=== PATIENT | female | born 1935 | race Caucasian/White ===

== ENCOUNTER → 2017-11-17 | Outpatient (CLI) | payer OTHER ==
[2017-11-17] MEDS: REGADENOSON 0.4 MG/5 ML DISP.SYRIN. IV (10:46)
== END | disposition home or self-care (01) ==
LOC: ECHO 07:46
DX: R07.9 Chest pain, unspecified (principal); I10 Essential (primary) hypertension; E11.9 Type 2 diabetes mellitus without complications
CPT/HCPCS: 78452; 93017; 93306; 96374; 96375; 96376; A9500; J2785

== ENCOUNTER 2018-10-28 16:14 | Emergency (ER) | payer OTHER ==
[~2018-10-28] VITALS: Ht 162.6 cm; Wt 67.1 kg
[~2018-10-28 16:14] MED LIST: ALEN70TA6 PO; BRIM5DRO2 OP; LATA2.5D3 OP; LISI-338 PO; METF500T16 PO
[2018-10-28 16:32] VITALS: BP 195/100
[2018-10-28] MEDS ORDERED: OXYMETAZOLINE 0.05% NASAL SPRAY 30ML BOTTLE. NS ONE (16:45)
--- NOTE | 2018-10-28 16:59 | PHYS DOC ---
Past Medical History Past Medical History: Arthritis, Diabetes-Type II, Glaucoma, Hypertension Additional Past Medical Histor: HIGH CHOLESTEROL Past Surgical History: Appendectomy, Other Additional Past Surgical Histo: GALLBLADDER REMOVAL, BILATERAL ARM SURGERY Additional Information: Nonsmoker Alcohol Use: None Drug Use: None Adult General Chief Complaint Chief Complaint: NOSEBLEED HPI HPI Patient is a 83 year old female who presents with nosebleed. This started approximately 36 hours ago. Has been intermittent. No trauma. No upper respiratory infection symptoms mild in intensity with an occasional drip, no "gush" of blood. It stops with direct pressure. Nothing seems to make it worse. No fever. No difficulty breathing. She denies being on any blood thinners other than a baby aspirin at bedtime.[] Review of Systems Review of Systems Constitutional: Denies fever or chills [] Eyes: Denies change in visual acuity, redness, or eye pain [] HENT: Denies nasal congestion other than the nosebleed or sore throat [] Respiratory: Denies cough or shortness of breath [] Cardiovascular: No chest pain or palpitations[] GI: Denies abdominal pain, nausea, vomiting, bloody stools or diarrhea [] : Denies dysuria or hematuria [] Musculoskeletal: Denies back pain or joint pain [] Integument: Denies rash or skin lesions [] Neurologic: Denies headache, focal weakness or sensory changes [] Endocrine: Denies polyuria or polydipsia [] All other systems were reviewed and found to be within normal limits, except as documented in this note. Allergies Allergies Allergies Coded Allergies Type Severity Reaction Last Updated Verified No Known Drug Allergies 08/12/13 No Physical Exam Physical Exam Constitutional: Well developed, well nourished, no acute distress, non-toxic appearance. [] HENT: Normocephalic, atraumatic, bilateral external ears normal, oropharynx moist, no oral exudates, nose with blood in bilateral nares, left greater than right, no active bleeding site identified. No septal hematoma.. [] Eyes: PERRLA, EOMI, conjunctiva normal, no discharge. [] Neck: Normal range of motion, no tenderness, supple, no stridor. [] Cardiovascular:Heart rate regular rhythm, no murmur [] Lungs & Thorax: Bilateral breath sounds clear to auscultation [] Abdomen: Not examined[] Skin: Warm, dry, no erythema, no rash. No petechiae [] Back: No tenderness, no CVA tenderness. [] Extremities: No tenderness, no cyanosis, no clubbing, ROM intact, no edema. [] Neurologic: Alert and oriented X 3, normal motor function, normal sensory function, no focal deficits noted. [] Psychologic: Affect normal, judgement normal, mood normal. [] EKG EKG [] Radiology/Procedures Radiology/Procedures [] Course & Med Decision Making Course & Med Decision Making Pertinent Labs and Imaging studies reviewed. (See chart for details) ED course: Patient arrived, was placed in bed, and tolerated exam well. Patient had 4 sprays of oxymetazoline instilled into each nostril and pressure held for 10 minutes with a nose clamp. This improved the bleeding. She was instructed on how to do this at home and when to return. Patient and family voiced understanding. All questions were answered.[] Dragon Disclaimer Dragon Disclaimer This electronic medical record was generated, in whole or in part, using a voice recognition dictation system. Departure Departure Impression: Primary Impression: Anterior epistaxis Disposition: HOME, SELF-CARE Condition: IMPROVED Referrals: LOUISA WHITT MD (PCP) Follow-up in 2 days Patient Instructions: Nosebleed Additional Instructions: Follow-up with your regular doctor in 2 days. You may slather Vaseline on the inside of your nose to help function as a moisture barrier to allow you to heal. Return to the ER if worsening bleeding or any other concerns. Use the Afrin as follows: 1. Gently blow the snot and clot out 2. Sprain 4 squirts of Afrin in each nostril while inhaling through the nose 3. Hold pressure for 10 minutes 4. If there is continued bleeding after 10 minutes, repeat steps 1 through 3 above 5. If there is continued bleeding after 2 attempts continue to hold pressure and return to the emergency department HEBER WORLEY DO Oct 28, 2018 16:59
== END 2018-10-28 17:23 | disposition home or self-care (01) ==
LOC: ER 16:14
DX: R04.0 Epistaxis (principal); E78.00 Pure hypercholesterolemia, unspecified; E11.9 Type 2 diabetes mellitus without complications; I10 Essential (primary) hypertension
CPT/HCPCS: 99282

== ENCOUNTER → 2018-12-13 | Outpatient (CLI) | payer OTHER ==
--- NOTE | 2018-12-13 08:57 | RAD ---
MR#: [id number] Date of Study: 12/13/2018 Ordering Physician: ALCON YOUNG, Referring Physician: ALCON YOUNG, Tech: Eze Estevez MBA, RDMS, RVT, RDCS, RTR APPROVED REPORT Patient Location : OUT-PATIENT Indications LEG CRAMPS/WORSE ON LEFT Greater Saphenous Veins (GSV) Significant venous relux noted in the LEFT GSV at the following levels : Superficial Femoral Junction , Proximal Thigh, Mid Thigh, Distal Thigh, Proximal Calf, Mid Calf, Distal Calf Perforators Thigh Perforators Calf Perforators Left: cm up from medial heel 21cm back from the anterior border of tibia 3 diameter 2mm. Findings Grayscale images of the left greater saphenous vein do not reveal any obvious evidence of thrombus. T he left great saphenous vein measures approximate 6.9 mm in greatest diameter and has a maximum reflu x time of 4.1 seconds. There are mid leg perforators in the left side at approximately 21 cm up from the ankle and 3 cm back from the knee with a diameter of approximately 2.2 mm in these perforators de monstrated reflux. The right great saphenous vein does not have any obvious evidence of thrombus and measures approximat e 5.8 mm. The right great saphenous vein does not reflux. The bilateral lesser saphenous veins do not demonstrate any reflux. Critical Notification Critical Value: No <Conclusion> 1. Positive for reflux in the left greater saphenous vein with a thigh sales and marketing agent as noted above. 2. Negative for reflux in the right great saphenous vein and bilateral lesser saphenous veins. Signed by : Mykel Rm, Electronically Approved : 12/13/2018 08:57:01
== END | disposition home or self-care (01) ==
LOC: US 08:03
PROVIDERS: ATTEND Internal Medicine Cardiovascular Disease
DX: I87.2 Venous insufficiency (chronic) (peripheral) (principal)
CPT/HCPCS: 93970

== ENCOUNTER → 2020-09-03 | Outpatient (CLI) | payer MEDICARE ==
[~2020-09-03] MED LIST changes: -ALEN70TA6 PO; +ALEN70TA71 PO
--- NOTE | 2020-09-03 11:15 | KCIC ---
EXAM: Thoracic spine, 3 views. HISTORY: Acute pain. COMPARISON: None. FINDINGS: 3 views of the thoracic spine are obtained. There is mild S-shaped thoracolumbar scoliosis. There is a moderate wedge compression fracture of L1. There is chronic in appearance. IMPRESSION: 1. Moderate chronic appearing L1 compression fracture. 2. Mild S-shaped scoliosis. Electronically signed by: Joann Dorman MD (09/03/2020 11:13 AM) [id number]
== END ==
LOC: KCIC 10:43
PROVIDERS: ATTEND Family Medicine
DX: S32.010A Wedge compression fracture of first lumbar vertebra, initial encounter for closed fracture (principal); M41.86 Other forms of scoliosis, lumbar region; X58.XXXA Exposure to other specified factors, initial encounter; Y93.89 Activity, other specified; Y92.89 Other specified places as the place of occurrence of the external cause; Y99.8 Other external cause status
CPT/HCPCS: 72072

== ENCOUNTER → 2020-09-16 | Outpatient (CLI) | payer MEDICARE ==
[~2020-09-16] MED LIST changes: -LISI-338 PO; +LISI-517 PO
--- NOTE | 2020-09-16 16:09 | KCIC ---
MRI of the lumbar spine without contrast 09/16/2020 CLINICAL HISTORY: Chronic low back pain. TECHNIQUE: Unenhanced T1-weighted and T2-weighted sagittal and axial and inversion recovery sagittal images of the lumbar spine were obtained. FINDINGS: Comparison is made to radiographs of the lumbar spine dated 08/12/2013. Very mild S-shaped curvature of the thoracolumbar spine is seen. Degenerative signal changes are seen involving all of the disks of the lumbar spine. Degenerative signal changes are seen within the sarah ow surrounding these discs. An old compression fracture of the L1 vertebral body is again seen. No re tropulsion of bone fragments into the central spinal canal is noted. No acute compression fracture of the lumbar vertebrae is seen. The conus medullaris is normal morphology, position and signal charact eristics. On the axial images throughout the lumbar disc spaces, the changes of degenerative disc disease are s een. These consist of minimal to mild generalized disc bulges, degenerative changes involving the fac et joints and mild to moderate ligamentum flavum hypertrophy. These findings do not result in areas o f significant central spinal canal or neural foraminal stenosis. IMPRESSION: 1. An old compression fracture of the L1 vertebral body is again seen. No acute compression fracture of the lumbar vertebrae is noted. 2. The changes of degenerative disc disease are seen throughout the lumbar spine. These findings do n ot result in significant central spinal canal or neural foraminal stenosis. Electronically signed by: Scott Ritter MD (09/16/2020 4:07 PM) [id number]
== END ==
LOC: KCIC MRI 12:22
PROVIDERS: ATTEND Family Medicine
DX: S32.010G Wedge compression fracture of first lumbar vertebra, subsequent encounter for fracture with delayed healing (principal); M51.36 Other intervertebral disc degeneration, lumbar region; X58.XXXD Exposure to other specified factors, subsequent encounter
CPT/HCPCS: 72148

== ENCOUNTER → 2021-09-14 | Outpatient (CLI) | payer MEDICARE ==
[~2021-09-14] MED LIST changes: -LISI-517 PO; +LISI5TAB15 PO
--- NOTE | 2021-09-14 16:52 | CARD ---
MR#: [id number] Date of Study: 09/14/2021 Ordering Physician: ALCON YOUNG, Referring Physician: ALCON YOUNG Tech: Juani Kelly [facility] APPROVED REPORT EXAM: Two-dimensional and M-mode echocardiogram with Doppler and color Doppler. Other Information Quality : AverageHR: 73bpm Rhythm : NSR INDICATION Hypertension/HCVD RISK FACTORS Hypertension 2D DIMENSIONS RVDd2.6 (2.9-3.5cm)Left Atrium(2D)3.3 (1.6-4.0cm) IVSd0.9 (0.7-1.1cm)Aortic Root(2D)3.2 (2.0-3.7cm) LVDd3.6 (3.9-5.9cm)LVOT Diameter2.0 (1.8-2.4cm) PWd0.9 (0.7-1.1cm)LVDs2.8 (2.5-4.0cm) FS (%) 22.6 %SV25.9 ml Aortic Valve AoV Peak Juaquin.136.5cm/sAoV VTI33.4cm AO Peak GR.7.5mmHgLVOT Peak Juaquin.131.5cm/s AO Mean GR.4mmHgAVA (VMAX)3.17cm2 Mitral Valve MV E Ejxgmaiq10.2cm/sMV DECEL [id number] MV A Nejhzcqt82.2cm/sE/A Ratio0.8 Pulmonary Valve PV Peak Opruljcp695.6cm/s Tricuspid Valve TR P. Mmvgdcil653cm/sTR Peak Gr.25mmHg LEFT VENTRICLE The left ventricle is normal size. There is normal left ventricular wall thickness. The left ventricu lar systolic function is normal and the ejection fraction is within normal range. LV ejection fracti on of 55 to 60%. There is normal LV segmental wall motion. Transmitral Doppler flow pattern is Grade I-abnormal relaxation pattern. RIGHT VENTRICLE The right ventricle is normal size. There is normal right ventricular wall thickness. The right ventr icular systolic function is normal. ATRIA The left atrium size is normal. The right atrium size is normal. The interatrial septum is intact wit h no evidence for an atrial septal defect or patent foramen ovale as noted on 2-D or Doppler imaging. AORTIC VALVE The aortic valve is mildly calcified but opens well. Doppler and Color Flow revealed no significant a ortic regurgitation. There is no significant aortic valvular stenosis. MITRAL VALVE The mitral valve is normal in structure and function. There is no evidence of mitral valve prolapse. There is no mitral valve stenosis. Doppler and Color-flow revealed mild mitral regurgitation. TRICUSPID VALVE The tricuspid valve is normal in structure and function. Doppler and Color Flow revealed mild tricusp id regurgitation. Estimated PAP 30 mmHg. There is no tricuspid valve stenosis. PULMONIC VALVE The pulmonary valve is normal in structure and function. Doppler and Color Flow revealed mild pulmoni c valvular regurgitation. GREAT VESSELS The aortic root is normal in size. The ascending aorta is normal in size. The IVC is normal in size a nd collapses >50% with inspiration. PERICARDIAL EFFUSION There is no evidence of significant pericardial effusion. Critical Notification Critical Value: No <Conclusion> The left ventricle is normal size. The left ventricular systolic function is normal and the ejection fraction is within normal range. LV ejection fraction of 55 to 60%. Doppler and Color Flow revealed no significant aortic regurgitation. There is no significant aortic valvular stenosis. Doppler and Color-flow revealed mild mitral regurgitation. Doppler and Color Flow revealed mild tricuspid regurgitation. Estimated PAP 30 mmHg. Signed by : Ghulam Godwin MD Electronically Approved : 09/14/2021 16:51:57
== END ==
LOC: ECHO 09:56
PROVIDERS: ATTEND Internal Medicine Cardiovascular Disease
DX: I08.8 Other rheumatic multiple valve diseases (principal); I10 Essential (primary) hypertension
CPT/HCPCS: 93306; C8929